=== PATIENT | male | born 1995 | race Caucasian/White ===

== ENCOUNTER 2016-06-21 18:08 | Emergency (ER) | payer OTHER ==
[~2016-06-21] VITALS: Ht 188 cm; Wt 66.7 kg
[~2016-06-21 18:08] MED LIST: CIPRO250 MG PO; FLA500 PO; LAC PO
[2016-06-21 20:53] LABS: CALCIUM 8.8 mg/dL (8.5-10.1); CARBON DIOXIDE 31.3 mmol/L (21-32); CHLORIDE SERUM 103 mmol/L (98-107); CREATININE SERUM 0.9 mg/dL (0.7-1.3); GFR1 > 60 mL/min; GLUCOSE SERUM 90 mg/dL (74-106); POTASSIUM SERUM 4.3 mmol/L (3.5-5.1); SODIUM SERUM 141 mmol/L (136-145); microscopic required? NO
[2016-06-21 20:56] LABS: BASOPHIL % 0.3 % (0-2); PLATELET COUNT 187 x10^3mcL (130-400); RED CELL DISTRIBUTION WIDTH 12.4 % (11.5-14.5)
[2016-06-21 20:58] LABS: ALBUMIN 4.1 g/dL (3.4-5.0); ALKALINE PHOSPHATASE 64 U/L (46-116); ALT/SGPT 13 U/L (16-63); AMYLASE 48 U/L (25-115); AST/SGOT 20 U/L (15-37); BILIRUBIN TOTAL 0.9 mg/dL (0.20-1.00); LIPASE 112 IU/L (73-393)
[2016-06-21 21:01] LABS: urine erythrocyte NEGATIVE (NEGATIVE)
[2016-06-21 22:23] VITALS: BP 118/82
== END 2016-06-21 22:23 | disposition home or self-care (01) ==
LOC: ED 18:08
PROVIDERS: Emergency Medicine
DX: R10.13 Epigastric pain (principal); R10.12 Left upper quadrant pain; R11.10 Vomiting, unspecified
CPT/HCPCS: Q0162

== ENCOUNTER 2018-10-27 16:52 | Emergency (ER) | payer OTHER ==
[~2018-10-27] VITALS: Ht 188 cm; Wt 63.0 kg
[2018-10-27 17:14] VITALS: Ht 188 cm; Wt 63.0 kg
[2018-10-27 20:39] VITALS: BP 110/68
== END 2018-10-27 20:39 | disposition home or self-care (01) ==
LOC: ED 16:52
DX: S09.90XA Unspecified injury of head, initial encounter (principal); J32.9 Chronic sinusitis, unspecified; W50.1XXA Accidental kick by another person, initial encounter; Y93.89 Activity, other specified; Y92.89 Other specified places as the place of occurrence of the external cause; Y99.8 Other external cause status

== ENCOUNTER 2019-01-26 18:49 | Emergency (ER) | payer OTHER ==
[~2019-01-26] VITALS: Ht 188 cm; Wt 68.0 kg
[2019-01-26 19:28] VITALS: Ht 188 cm; Wt 68.0 kg
[2019-01-26 21:38] VITALS: BP 101/58
== END 2019-01-26 21:38 | disposition home or self-care (01) ==
LOC: ED 18:49
DX: S90.32XA Contusion of left foot, initial encounter (principal); S90.31XA Contusion of right foot, initial encounter; X58.XXXA Exposure to other specified factors, initial encounter; Y93.89 Activity, other specified; Y92.89 Other specified places as the place of occurrence of the external cause; Y99.8 Other external cause status

== ENCOUNTER 2019-10-22 19:41 | Emergency (ER) | payer OTHER ==
[~2019-10-22] VITALS: Ht 190.5 cm; Wt 68.0 kg
[2019-10-22 19:47] VITALS: Ht 190.5 cm; Wt 68.0 kg
[2019-10-22 20:32] VITALS: BP 117/75
== END 2019-10-22 20:32 | disposition home or self-care (01) ==
LOC: ED 19:41
DX: J03.90 Acute tonsillitis, unspecified (principal); Z20.828 Contact with and (suspected) exposure to other viral communicable diseases
CPT/HCPCS: J2930; U0003-CS